=== PATIENT | female | born 1995 | race Caucasian/White ===

== ENCOUNTER 2018-02-02 09:55 | Emergency (ER) | END 2018-02-02 11:08 | disposition home or self-care (01) ==

== ENCOUNTER 2019-06-13 08:51 | Emergency (ER) | payer MEDICAID ==
[~2019-06-13] VITALS: Ht 154.9 cm; Wt 63.1 kg
[~2019-06-13 08:51] MED LIST: DICY10CA40 PO; IBUP-1542 PO; NAPR-985 PO; SIME80TA63 PO
[2019-06-13 08:53] VITALS: BP 118/77; PULSE 67; RESP 18; Ht 154.9 cm; Wt 63.1 kg
[2019-06-13] MEDS ORDERED: ONDANSETRON (ODT) 4 MG TAB ODT STA (09:24)
[2019-06-13] MEDS ORDERED: HYDROCODONE/APAP (5/325) TAB PO ONE (09:30)
== END 2019-06-13 11:25 | disposition home or self-care (01) ==
LOC: FTE 08:51
DX: R10.84 Generalized abdominal pain (principal)
CPT/HCPCS: 36415; 74176; 76705; 76830; 76856; 80053; 81001; 81025; 83690; 85025; Z7502; Z7610